=== PATIENT | male | born 1945 | race Caucasian/White ===

== ENCOUNTER 2020-07-13 10:42 | Emergency (ER) | payer MEDICARE, BC ==
[~2020-07-13] VITALS: Ht 172.7 cm; Wt 76.2 kg
[2020-07-13] MEDS ORDERED: DEXAMETHASONE 4 MG/ML, 1ML IVPush ONE (13:00)
[2020-07-13] MEDS ORDERED: CEFTRIAXONE PMX 1GM/50ML 50 ML IVPB ONE (13:00)
[2020-07-13] MEDS ORDERED: SODIUM CHLORIDE 0.9% 1,000ML IVBOLUS ONE (13:00)
[2020-07-13] MEDS ORDERED: DOXYCYCLINE 100MG TABLET PO ONE (13:00)
[2020-07-13] MEDS ORDERED: DEXAMETHASONE 4 MG/ML, 1ML ONE (13:41)
[2020-07-13] MEDS ORDERED: DOXYCYCLINE 100MG TABLET ONE (13:42)
[2020-07-13] MEDS ORDERED: CEFTRIAXONE PMX 1GM/50ML 50 ML ONE (13:42)
[2020-07-13 13:46] LABS: ALBUMIN 3.4 g/dL (3.4-5.0); ANION GAP 12 mmol/L (5-15); CALCIUM 8.7 mg/dL (8.5-10.1); CHLORIDE 100 mmol/L (98-107)
[2020-07-13 13:48] LABS: ALANINE AMINOTRANSFERASE 23 U/L (12-78); ALKALINE PHOSPHATASE 85 U/L (45-117); BILIRUBIN,TOTAL 0.5 mg/dL (0.2-1.0); CREATININE 1.39 mg/dL (0.7-1.3); D-DIMER (DIC) 0.29 ug/mlFEU (0.00-0.52); PROTIME 10.4 Seconds (9.6-11.5); TOTAL PROTEIN 7.9 g/dL (6.4-8.2)
--- NOTE | 2020-07-13 13:54 | NUR ---
PIV PLACED BY ROLL CARRIER. MEDS ADMIN PER OCT. IVF RUNNING. WARM BLANKET PROVIDED.
[2020-07-13 14:45] VITALS: BP 147/70
--- NOTE | 2020-07-13 14:46 | NUR ---
PT RESTING COMFORTABLY ON GURNEY. KATIE.
[2020-07-13 15:19] LABS: BASOPHILS % (AUTO) 0 % (0-1); EOSINOPHILS % (AUTO) 0 % (1-7); LYMPHOCYTES % (AUTO) 15 % (22-44); MEAN CORPUSCULAR HEMOGLOBIN 28.7 pg (27.5-34.5); MEAN CORPUSCULAR HGB CONC 32.7 g/dL (33.2-36.2); MEAN PLATELET VOLUME 9.8 fL (7.4-10.4); MONOCYTES % (AUTO) 8 % (2-9); NEUTROPHILS % (AUTO) 77 % (42-75); PLATELET COUNT 152 x10^3/uL (130-400); RED BLOOD COUNT 5.06 x10^6/uL (4.38-5.82); RED CELL DISTRIBUTION WIDTH 14.4 % (9.4-14.8)
[2020-07-13 15:21] LABS: MD NO
--- NOTE | 2020-07-13 15:21 | NUR ---
EAR PULL MACHINE OPERATOR CHECKING ON PENDING LAB RESULTS.
--- NOTE | 2020-07-13 15:22 | NUR ---
ALL RESULTS ARE BACK AT THIS TIME. CHART UP FOR RECHECK.
--- NOTE | 2020-07-13 15:37 | NUR ---
MD AT BEDSIDE TO UPDATE PT ON POC.
== END 2020-07-13 16:49 | disposition home or self-care (01) ==
LOC: ED 11:50
DX: U07.1 COVID-19 (principal); B34.9 Viral infection, unspecified; R06.02 Shortness of breath; R05 Cough; I10 Essential (primary) hypertension; R19.7 Diarrhea, unspecified
CPT/HCPCS: 36415; 71045; 80053; 82728; 83605; 83615; 84145; 85025; 85049; 85379; 85384; 85610; 85730; 86140; 87040; 93005; 96365; 96375; 99285; J0696; J1100; J7030; U0003

== ENCOUNTER 2020-07-14 10:13 | Emergency (ER) | payer MEDICARE, BC ==
[~2020-07-14] VITALS: Ht 172.7 cm; Wt 76.4 kg
[2020-07-14] MEDS ORDERED: FILTER 0.22 MICRON IV ONE (10:30)
[2020-07-14] MEDS ORDERED: PLEASE ENTER HEIGHT AND WEIGHT MC SCH (10:30)
[2020-07-14] MEDS ORDERED: BAMLANIVIMAB 700 MG in SODIUM CHLORIDE 0.9% 180 ML IVPB ONE (11:30)
--- NOTE | 2020-07-14 11:33 | NUR ---
PHARM REQUEST SENT
--- NOTE | 2020-07-14 12:02 | NUR ---
REPORT RECEIVED FROM ROSCOE GOMES FOR TRANSFER OF PATIENT CARE.
--- NOTE | 2020-07-14 12:25 | NUR ---
BAMLANIVIMAB INFUSION STARTED AT 50 mLS/HR, PRE INFUSTION VITALS WITHIN NORMAL LIMITS, CALL LIGHT WITHIN REACH.
--- NOTE | 2020-07-14 12:49 | NUR ---
PATIENT TOLERATING INFUSION WELL, INCREASED FROM 50 mLS/HR TO 125 mLS/HR.
--- NOTE | 2020-07-14 13:19 | NUR ---
PATIENT TOLERATING INFUSION WELL, VITALS WITHIN NORMAL LIMITS, NO ADVERSE REACTION NOTED, CONNECTED TO VITALS MACHINE, CALL LIGHT WITHIN REACH. INFUSION INCREASED FROM 125 mLS/HR TO 200 mlS/HR.
--- NOTE | 2020-07-14 13:51 | NUR ---
PATIENT TOLERATING INFUSION WELL AT 200 mLS/HR, MAX DRIP RATE. NO SIGNS OF ACUTE DISTRESS, CONNECTED TO VITALS MACHINE, CALL LIGHT WITHIN REACH.
--- NOTE | 2020-07-14 15:12 | NUR ---
PATIENT POST TRANSFUSION, VITAL SIGNS WITHIN NORMAL LIMITS, NO SIGNS OF ACUTE DISTRESS, CONNECTED TO VITALS MACHINE, CALL LIGHT WITHIN REACH.
[2020-07-14 15:28] VITALS: BP 137/65
--- NOTE | 2020-07-14 15:39 | NUR ---
Patient given discharge instructions and bamlanivmab pamphlet and they have confirmed that they understand the instructions. All questions answered, vital signs stable, patient tolerated infusion well. IV removed with tip intact. Patient ambulatory with steady gait from ED to private vehicle.
== END 2020-07-14 15:39 | disposition home or self-care (01) ==
LOC: ED 12:00 → UNDOADMIN 14:23 → EDIP 14:23 → ED 15:39
DX: U07.1 COVID-19 (principal); J12.9 Viral pneumonia, unspecified; I10 Essential (primary) hypertension; E78.5 Hyperlipidemia, unspecified; Z23 Encounter for immunization
CPT/HCPCS: 96365; 96366; 99285; J7050; M0239; Q2039

== ENCOUNTER 2020-07-25 07:19 | Emergency (ER) | payer MEDICARE, BC ==
[~2020-07-25] VITALS: Ht 172.7 cm; Wt 74.8 kg
[2020-07-25 08:40] VITALS: BP 155/86
== END 2020-07-25 08:42 | disposition home or self-care (01) ==
LOC: ED 07:56
DX: U07.1 COVID-19 (principal); B34.9 Viral infection, unspecified; E78.00 Pure hypercholesterolemia, unspecified; I10 Essential (primary) hypertension
CPT/HCPCS: 87635; 99283

== ENCOUNTER 2020-08-09 10:46 | Emergency (ER) | payer MEDICARE, BC ==
[~2020-08-09] VITALS: Ht 172.7 cm; Wt 75.0 kg
--- NOTE | 2020-08-09 11:08 | NUR ---
TRIAGE: PATIENT HAD COVID, THEN CAME BACK LAST WEEK FOR RETEST, WAS POSITIVE. WAS TOLD TO COME BACK FOR ANOTHER TEST. FEELS BETTER.
--- NOTE | 2020-08-09 12:15 | NUR ---
DENTAL HYGIENE TEACHER: PT TO ROOM FROM KATIE WELSH
[2020-08-09 13:57] VITALS: BP 150/98
== END 2020-08-09 13:59 | disposition home or self-care (01) ==
LOC: ED 13:30
DX: U07.1 COVID-19 (principal)
CPT/HCPCS: 87635; 99283